=== PATIENT | female | born 1980 | race Caucasian/White ===

== ENCOUNTER 2018-11-03 19:57 | Emergency (ER) | payer SELFPAY ==
[~2018-11-03] VITALS: Ht 167.6 cm; Wt 37.2 kg
[2018-11-03 20:00] VITALS: Ht 167.6 cm; Wt 37.2 kg
[2018-11-03 22:55] LABS: BASOPHIL % 0.3 % (0-2); PLATELET COUNT 228 x10^3mcL (130-400)
[2018-11-03 22:57] LABS: RED CELL DISTRIBUTION WIDTH 22.2 % (11.5-14.5)
[2018-11-03 23:11] LABS: CARBON DIOXIDE 20.6 mmol/L (21-32); CHLORIDE SERUM 114 mmol/L (98-107); GLUCOSE SERUM 100 mg/dL (74-106)
[2018-11-03 23:12] LABS: ALBUMIN 2.9 g/dL (3.4-5.0); CREATININE SERUM 0.5 mg/dL (0.6-1.0); GFR1 > 60 mL/min; SODIUM SERUM 145 mmol/L (136-145); TOTAL PROTEIN, SERUM 5.9 g/dL (6.4-8.2)
[2018-11-03 23:13] LABS: ALKALINE PHOSPHATASE 88 U/L (46-116); ALT/SGPT 28 U/L (14-59); AST/SGOT 18 U/L (15-37); BILIRUBIN TOTAL 0.33 mg/dL (0.20-1.00)
[2018-11-03 23:21] LABS: POTASSIUM SERUM 2.6 mmol/L (3.5-5.1)
[2018-11-03 23:32] LABS: rbc morphology (normal/abnorm) ABNORMAL (NORMAL)
[2018-11-03 23:33] LABS: acanthocyte (spur cell) 1+; schistocyte (helmet cell) 1+
[2018-11-03 23:49] VITALS: BP 117/78
== END 2018-11-03 23:50 | disposition left against medical advice (07) ==
LOC: ED 19:57
PROVIDERS: Specialist
DX: K56.609 Unspecified intestinal obstruction, unspecified as to partial versus complete obstruction (principal); Z90.710 Acquired absence of both cervix and uterus
CPT/HCPCS: J1200; J2270; J2405; J3010; J7030; J7040; Q0092

== ENCOUNTER 2018-11-04 18:35 | Inpatient (IN) | payer SELFPAY | END 2018-11-04 21:40 | disposition left against medical advice (07) | LOC: ED 18:35 → DU 20:16 ==

== ENCOUNTER 2018-11-13 18:03 | Emergency (ER) | payer SELFPAY ==
[~2018-11-13] VITALS: Ht 167.6 cm; Wt 34.9 kg
[2018-11-13 18:40] VITALS: Ht 167.6 cm; Wt 34.9 kg
[2018-11-13 20:11] LABS: UA SPECIFIC GRAVITY 1.025 (1.005-1.035); microscopic required? YES; urine erythrocyte TRACE (NEGATIVE)
[2018-11-13 20:12] LABS: BASOPHIL % 0.4 % (0-2); PLATELET COUNT 364 x10^3mcL (130-400)
[2018-11-13 20:22] LABS: ALKALINE PHOSPHATASE 120 U/L (46-116); ALT/SGPT 75 U/L (14-59); AST/SGOT 58 U/L (15-37); BILIRUBIN TOTAL 0.4 mg/dL (0.20-1.00); CALCIUM 8.6 mg/dL (8.5-10.1); CHLORIDE SERUM 108 mmol/L (98-107); CREATININE SERUM 0.5 mg/dL (0.6-1.0); GFR1 > 60 mL/min; GLUCOSE SERUM 99 mg/dL (74-106); LIPASE 88 IU/L (73-393); SODIUM SERUM 146 mmol/L (136-145); TOTAL PROTEIN, SERUM 6.8 g/dL (6.4-8.2)
[2018-11-13 20:27] LABS: ALBUMIN 3.2 g/dL (3.4-5.0); POTASSIUM SERUM 2.6 mmol/L (3.5-5.1)
[2018-11-13 20:32] LABS: RED CELL DISTRIBUTION WIDTH 21.3 % (11.5-14.5)
[2018-11-13 20:52] LABS: rbc morphology (normal/abnorm) ABNORMAL (NORMAL)
[2018-11-13 21:53] VITALS: BP 95/55
== END 2018-11-13 23:38 | disposition left against medical advice (07) ==
LOC: ED 18:03 → DU 22:20 → ED 23:38
PROVIDERS: Emergency Medicine
DX: R10.31 Right lower quadrant pain (principal); E87.6 Hypokalemia; R74.0 Nonspecific elevation of levels of transaminase and lactic acid dehydrogenase [LDH]; E87.2 Acidosis; Z88.6 Allergy status to analgesic agent; Z88.8 Allergy status to other drugs, medicaments and biological substances; Z90.710 Acquired absence of both cervix and uterus
CPT/HCPCS: J1200; J2270; J2405; J2930; J3010; J3475; J7030; Q0092; Q0163